=== PATIENT | female | born 1960 | race Caucasian/White ===

== ENCOUNTER → 2016-10-07 | Outpatient (CLI) | payer OTHER ==
--- NOTE | 2016-10-07 13:43 | MA ---
Screening Digital Mammogram With Tomosynthesis Clinical Indications: Routine screening. Technique: Standard digital cephalocaudal and tomosynthesis mediolateral oblique projections are obt ained. The digital images were processed by the [employer] computer aided detection system. Comparison: February 2007 and July 2006 Breast density: B; There are scattered fibroglandular densities. Findings: CAD was reviewed. Architectural distortion with possible microcalcification formation in th e upper outer right breast. Remainder the right and left breast are stable.. Impression: Architectural distortion outer right breast. Recommendation: Right breast: Additional diagnostic mammogram images with a spot compression view in the CC projection, CC tomosynthesis view and a rolled medial view. If persistent, proceed to ultraso und for further characterization and localization purposes. Please fax a written or electronic order for a right breast diagnostic mammogram and ultrasound to . [facility] will send a result letter to the patient. Negative mammography should not preclude additional workup of a clinically suspicious finding. The patient's information is entered into a reminder system with a target due date for her next mammo gram.
== END ==
LOC: FIMAGING 12:43
DX: Z12.31 Encounter for screening mammogram for malignant neoplasm of breast (principal)
CPT/HCPCS: G0202

== ENCOUNTER → 2016-10-28 | Outpatient (CLI) | payer OTHER ==
--- NOTE | 2016-10-28 11:08 | MA ---
Diagnostic Digital Right Mammogram with Tomosynthesis History: Possible architectural distortion outer left breast. Comparison: Screening mammogram October 07, 2016. Technique: CC tomosynthesis, a true lateral view in the CC spot view over the outer right breast. Breast Density: B Findings: Architectural distortion does not persist and was consistent with overlapping normal parenc hymal structures including Lopez's ligaments.. Impression: Negative outer right breast. BI-RADS: Category 0 . Recommendation: Screening mammography in one year. Results and recommendation were communicated to the patient at the time of the examination.
== END ==
LOC: FIMAGING 10:24
PROVIDERS: ATTEND Internal Medicine
DX: Z12.39 Encounter for other screening for malignant neoplasm of breast (principal); R92.2 Inconclusive mammogram
CPT/HCPCS: G0206; G0279